=== PATIENT | male | born 1995 | race Caucasian/White ===

== ENCOUNTER 2021-02-24 16:58 | Inpatient (IN) | payer MEDICAID ==
[~2021-02-24] VITALS: Ht 175.3 cm; Wt 131.0 kg
[2021-02-24] MEDS ORDERED: ONDANSETRON ODT 4 MG TAB PO ONE (17:45)
[2021-02-24] MEDS ORDERED: PANTOPRAZOLE 40 MG TAB PO ONE (17:45)
[2021-02-24 18:02] LABS: Amphetamine Screen, Urine NEGATIVE (NEGATIVE); Barbiturate Scree,Urine NEGATIVE (NEGATIVE); Benzodiazephine Screen, Urine NEGATIVE (NEGATIVE); Cannabinoid Screen, Urine NEGATIVE (NEGATIVE); Cocaine Screen, Urine NEGATIVE (NEGATIVE); Opiate Scree,Urine NEGATIVE (NEGATIVE); Phencyclidine Screen, Urine NEGATIVE (NEGATIVE)
[2021-02-24 18:12] LABS: Urine Bacteria NONE SEEN /hpf (None Seen); Urine Blood Negative /uL (Negative); Urine Specific Gravity 1.036 (1.001-1.035); Urine WBC 1 /hpf (0 - 3)
[2021-02-24 19:14] LABS: Basophils # (auto) 0.1 10 ^3/uL (0-0.2); Eosinophils # (auto) 0.1 10 ^3/uL (0-0.8); Eosinophils % (auto) 0.7 % (0.0-7.0); Lymphocytes # (auto) 1.7 10 ^3/uL (0.4-5.4); Red Cell Distribution Width 13.8 % (11.8-14.3)
[2021-02-24 19:16] LABS: Basophils % (auto) 0.7 % (0.0-2.0); Hematocrit 52.9 % (41.0-53.0); Hemoglobin 17.6 g/dL (13.5-17.5); Lymphocytes % (auto) 11.5 % (10.0-50.0); Mean Corpuscular Hemoglobin 28.8 pg (28.0-32.0); Mean Corpuscular Hgb Conc. 33.3 g/dL (32.0-36.0); Mean Corpuscular Volume 86.6 fL (80.0-100.0); Monocytes % (auto) 6.7 % (0.0-12.0); Neutrophils % (auto) 80.4 % (37.0-80.0); Nucleated Red Blood Cells % 0.1 %; Red Blood Cells 6.11 10^6/uL (4.5-5.90)
[2021-02-24 19:34] LABS: Albumin 3.9 g/dL (3.4-5.0); Calcium 9.5 mg/dL (8.5-10.1); Potassium 4.4 mmol/L (3.5-5.1)
[2021-02-24 19:36] LABS: Bilirubin, Total 0.8 mg/dL (0.2-1.0); Total Protein 7.9 g/dL (6.4-8.2)
[2021-02-24 19:53] LABS: BUN/Creatinine Ratio 6.8
[2021-02-24] MEDS ORDERED: INSULIN LANTUS (GLARGINE) 1 /0.01ml (100units/ml) SC ONE (21:00)
[2021-02-24] MEDS ORDERED: InsuLIN R (HUMAN) 100 UNITS in SODIUM CHL 0.9% 99 ML IV SCH (21:00)
[2021-02-24] MEDS ORDERED: ACCU-CHEK COMFORT CURVE STRIP VI SCH (21:00)
[2021-02-24] MEDS ORDERED: SODIUM CHLORIDE 0.9% 1,000 ML IV ONE (21:00)
[2021-02-24] MEDS ORDERED: DEXTROSE (50%) 50ML SYRG IV PRN ×2 (21:00→21:30)
[2021-02-24] MEDS ORDERED: InsuLIN REG 1unit/0.01ml Soln (100units/ml) IV ONE (21:00)
[2021-02-24] MEDS ORDERED: ONDANSETRON HCL 4 MG/2 ML VIAL IV PRN (21:30)
[2021-02-24] MEDS ORDERED: NITROGLYCERIN 0.4 MG SL TAB SL PRN (21:30)
[2021-02-24] MEDS ORDERED: MORPHINE SULFATE INJECTION 2 MG/ML SYRG IV PRN (21:30)
[2021-02-24] MEDS ORDERED: InsuLIN REG 1unit/0.01ml Soln (100units/ml) ONE (23:01)
[2021-02-24] MEDS: SODIUM CHLORIDE 0.9% 1,000 ML IV SCH ×3 (23:19→23:42)
[2021-02-24] MEDS: ACCU-CHEK COMFORT CURVE STRIP VI SCH (23:19)
[2021-02-24 23:37] LABS: BUN/Creatinine Ratio 6.6; Calcium 8.4 mg/dL (8.5-10.1); Potassium 4.5 mmol/L (3.5-5.1)
[2021-02-25] MEDS: ACCU-CHEK COMFORT CURVE STRIP VI SCH ×14 (00:36→19:46)
[2021-02-25] MEDS: SODIUM CHLORIDE 0.9% 1,000 ML IV SCH ×4 (03:32→23:30)
[2021-02-25] MEDS: MORPHINE SULFATE INJECTION 2 MG/ML SYRG IV PRN (03:51)
[2021-02-25 04:19] LABS: BUN/Creatinine Ratio 6.5; Calcium 7.8 mg/dL (8.5-10.1); Potassium 3.4 mmol/L (3.5-5.1)
[2021-02-25 08:49] LABS: Basophils # (auto) 0.1 10 ^3/uL (0-0.2); Basophils % (auto) 0.6 % (0.0-2.0); Eosinophils # (auto) 0.2 10 ^3/uL (0-0.8); Eosinophils % (auto) 1.8 % (0.0-7.0); Hematocrit 47.8 % (41.0-53.0); Hemoglobin 16.4 g/dL (13.5-17.5); Lymphocytes # (auto) 1.8 10 ^3/uL (0.4-5.4); Lymphocytes % (auto) 13.7 % (10.0-50.0); Mean Corpuscular Hemoglobin 28.6 pg (28.0-32.0); Mean Corpuscular Hgb Conc. 34.3 g/dL (32.0-36.0); Mean Corpuscular Volume 83.5 fL (80.0-100.0); Monocytes % (auto) 7.7 % (0.0-12.0); Neutrophils # (auto) 10.2 10 ^3/uL (1.6-8.6); Neutrophils % (auto) 76.2 % (37.0-80.0); Nucleated Red Blood Cells % 0.1 %; Red Blood Cells 5.73 10^6/uL (4.5-5.90); Red Cell Distribution Width 13.6 % (11.8-14.3); White Blood Cell 13.4 10^3/uL (4.4-10.8)
[2021-02-25 09:01] LABS: Albumin 3.3 g/dL (3.4-5.0); Calcium 8.6 mg/dL (8.5-10.1); Potassium 3.5 mmol/L (3.5-5.1)
[2021-02-25 09:06] LABS: BUN/Creatinine Ratio 7.9; Bilirubin, Total 0.5 mg/dL (0.2-1.0)
[2021-02-25] MEDS ORDERED: INSULIN LANTUS (GLARGINE) 1 /0.01ml (100units/ml) SC SCH (10:00)
[2021-02-25] MEDS ORDERED: DEXTROSE (50%) 50ML SYRG IV PRN (16:00)
[2021-02-25] MEDS: InsuLIN REG 1unit/0.01ml Soln (100units/ml) SC SCH ×4 (16:19→19:48)
[2021-02-25 17:14] LABS: BUN/Creatinine Ratio 8.3; Calcium 8.3 mg/dL (8.5-10.1); Potassium 3.8 mmol/L (3.5-5.1)
[2021-02-25 17:29] LABS: Lipase 13207 U/L (73-393)
[2021-02-25 17:35] LABS: Amylase 664 U/L (25-115)
[2021-02-25] MEDS: INSULIN LANTUS (GLARGINE) 1 /0.01ml (100units/ml) SC SCH (22:00)
[2021-02-25 23:00] VITALS: BP 139/77
[2021-02-25 23:19] VITALS: BP 139/77
[2021-02-26] MEDS: InsuLIN REG 1unit/0.01ml Soln (100units/ml) SC SCH ×4 (00:16→12:00)
[2021-02-26] MEDS: ACCU-CHEK COMFORT CURVE STRIP VI SCH ×3 (00:21→12:00)
[2021-02-26 05:30] VITALS: BP 129/80
[2021-02-26] MEDS: SODIUM CHLORIDE 0.9% 1,000 ML IV SCH ×4 (06:06→22:45)
[2021-02-26 07:34] LABS: Basophils # (auto) 0.1 10 ^3/uL (0-0.2); Basophils % (auto) 0.4 % (0.0-2.0); Eosinophils # (auto) 0.8 10 ^3/uL (0-0.8); Eosinophils % (auto) 6.4 % (0.0-7.0); Hematocrit 43.2 % (41.0-53.0); Hemoglobin 14.2 g/dL (13.5-17.5); Lymphocytes # (auto) 2.2 10 ^3/uL (0.4-5.4); Lymphocytes % (auto) 18.5 % (10.0-50.0); Mean Corpuscular Hemoglobin 27.9 pg (28.0-32.0); Mean Corpuscular Hgb Conc. 32.9 g/dL (32.0-36.0); Mean Corpuscular Volume 84.9 fL (80.0-100.0); Monocytes # (auto) 0.9 10 ^3/uL (0-1.3); Monocytes % (auto) 7.3 % (0.0-12.0); Neutrophils # (auto) 7.9 10 ^3/uL (1.6-8.6); Neutrophils % (auto) 67.4 % (37.0-80.0); Nucleated Red Blood Cells % 0.1 %; Red Blood Cells 5.09 10^6/uL (4.5-5.90); Red Cell Distribution Width 13.7 % (11.8-14.3); White Blood Cell 11.8 10^3/uL (4.4-10.8)
[2021-02-26 08:00] LABS: Magnesium 1.8 mg/dL (1.6-2.6); Potassium 3.3 mmol/L (3.5-5.1)
[2021-02-26 08:10] LABS: Albumin 2.9 g/dL (3.4-5.0); BUN/Creatinine Ratio 8.5; Bilirubin, Total 0.6 mg/dL (0.2-1.0); Calcium 8.3 mg/dL (8.5-10.1); Total Protein 5.8 g/dL (6.4-8.2)
[2021-02-26] MEDS: INSULIN LANTUS (GLARGINE) 1 /0.01ml (100units/ml) SC SCH ×2 (10:00→21:48)
[2021-02-26] MEDS: MORPHINE SULFATE INJECTION 2 MG/ML SYRG IV PRN (13:20)
[2021-02-26] MEDS ORDERED: MAGNESIUM SULFATE 1GM/100ML 100 ML IV ONE (15:15)
[2021-02-26] MEDS ORDERED: POTASSIUM EFFERVESENT TAB 25 MEQ PO ONE (15:15)
[2021-02-26 17:00] VITALS: BP 119/67
[2021-02-26 22:00] VITALS: BP 123/68
[2021-02-27] MEDS: ACCU-CHEK COMFORT CURVE STRIP VI SCH ×4 (00:15→17:58)
[2021-02-27] MEDS: InsuLIN REG 1unit/0.01ml Soln (100units/ml) SC SCH ×5 (00:20→23:58)
[2021-02-27 05:00] VITALS: BP 125/57
[2021-02-27 06:03] LABS: Basophils # (auto) 0 10 ^3/uL (0-0.2); Basophils % (auto) 0.3 % (0.0-2.0); Eosinophils # (auto) 0.7 10 ^3/uL (0-0.8); Eosinophils % (auto) 9.6 % (0.0-7.0); Hematocrit 39.3 % (41.0-53.0); Hemoglobin 13.2 g/dL (13.5-17.5); Lymphocytes % (auto) 26.2 % (10.0-50.0); Mean Corpuscular Hemoglobin 28.3 pg (28.0-32.0); Mean Corpuscular Hgb Conc. 33.7 g/dL (32.0-36.0); Mean Corpuscular Volume 83.9 fL (80.0-100.0); Monocytes # (auto) 0.6 10 ^3/uL (0-1.3); Monocytes % (auto) 7.8 % (0.0-12.0); Neutrophils # (auto) 4.2 10 ^3/uL (1.6-8.6); Neutrophils % (auto) 56.1 % (37.0-80.0); Red Blood Cells 4.68 10^6/uL (4.5-5.90); Red Cell Distribution Width 13.5 % (11.8-14.3); White Blood Cell 7.6 10^3/uL (4.4-10.8)
[2021-02-27 06:16] LABS: Magnesium 1.8 mg/dL (1.6-2.6); Potassium 3.2 mmol/L (3.5-5.1)
[2021-02-27] MEDS: INSULIN LANTUS (GLARGINE) 1 /0.01ml (100units/ml) SC SCH ×2 (09:11→22:27)
[2021-02-27 09:19] VITALS: BP 160/82
[2021-02-27] MEDS: SODIUM CHLORIDE 0.9% 1,000 ML IV SCH ×2 (10:30→21:15)
[2021-02-27 12:30] VITALS: BP 128/73
[2021-02-27 17:30] VITALS: BP 128/74
[2021-02-27] MEDS ORDERED: MAGNESIUM SULFATE 1GM/100ML 100 ML IV ONE (17:45)
[2021-02-27] MEDS ORDERED: POTASSIUM EFFERVESENT TAB 25 MEQ PO ONE (17:45)
[2021-02-28 05:22] VITALS: BP 153/102
[2021-02-28] MEDS: InsuLIN REG 1unit/0.01ml Soln (100units/ml) SC SCH ×3 (06:01→18:36)
[2021-02-28] MEDS: ACCU-CHEK COMFORT CURVE STRIP VI SCH ×5 (06:01→23:29)
[2021-02-28] MEDS: SODIUM CHLORIDE 0.9% 1,000 ML IV SCH (06:13)
[2021-02-28 07:23] LABS: Magnesium 1.9 mg/dL (1.6-2.6); Potassium 3.5 mmol/L (3.5-5.1)
[2021-02-28 09:00] VITALS: BP 139/90
[2021-02-28] MEDS: LACTATED RINGER'S 1,000 ML IV SCH ×3 (10:17→20:12)
[2021-02-28] MEDS: INSULIN LANTUS (GLARGINE) 1 /0.01ml (100units/ml) SC SCH (10:18)
[2021-02-28 13:00] VITALS: BP 125/83
[2021-02-28] MEDS ORDERED: MAGNESIUM SULFATE 1GM/100ML 100 ML IV ONE (15:00)
[2021-02-28] MEDS ORDERED: POTASSIUM EFFERVESENT TAB 25 MEQ PO ONE (15:00)
[2021-02-28 17:00] VITALS: BP 136/54
[2021-02-28 22:37] VITALS: BP 138/84
[2021-03-01] MEDS: InsuLIN REG 1unit/0.01ml Soln (100units/ml) SC SCH ×4 (00:14→17:52)
[2021-03-01] MEDS: INSULIN LANTUS (GLARGINE) 1 /0.01ml (100units/ml) SC SCH ×3 (00:15→22:00)
[2021-03-01] MEDS: LACTATED RINGER'S 1,000 ML IV SCH ×3 (03:44→21:35)
[2021-03-01 05:58] VITALS: BP 133/90
[2021-03-01] MEDS: ACCU-CHEK COMFORT CURVE STRIP VI SCH ×3 (06:12→17:46)
[2021-03-01 09:00] VITALS: BP 135/83
[2021-03-01 10:54] LABS: Magnesium 1.7 mg/dL (1.6-2.6); Potassium 3.8 mmol/L (3.5-5.1)
[2021-03-01] MEDS ORDERED: POTASSIUM EFFERVESENT TAB 25 MEQ PO ONE (15:45)
[2021-03-01] MEDS ORDERED: MAGNESIUM SULFATE 1GM/100ML 100 ML IV ONE (15:45)
[2021-03-01 17:00] VITALS: BP 124/76
[2021-03-01 22:00] VITALS: BP 124/74
[2021-03-02] MEDS: ACCU-CHEK COMFORT CURVE STRIP VI SCH ×4 (00:56→18:04)
[2021-03-02] MEDS: InsuLIN REG 1unit/0.01ml Soln (100units/ml) SC SCH ×4 (01:03→18:04)
[2021-03-02 05:00] VITALS: BP 114/67
[2021-03-02] MEDS: LACTATED RINGER'S 1,000 ML IV SCH ×3 (06:49→17:15)
[2021-03-02 09:00] VITALS: BP_SYST 122; BP_SYST 135; BP_DIAS 83
[2021-03-02] MEDS: INSULIN LANTUS (GLARGINE) 1 /0.01ml (100units/ml) SC SCH ×2 (10:00→22:58)
[2021-03-02 11:33] LABS: Magnesium 1.6 mg/dL (1.6-2.6)
[2021-03-02 11:44] LABS: Potassium 3.4 mmol/L (3.5-5.1)
[2021-03-02] MEDS ORDERED: ASPirin 81 mg TAB PO ONE (12:00)
[2021-03-02] MEDS ORDERED: POTASSIUM EFFERVESENT TAB 25 MEQ PO ONE (12:15)
[2021-03-02 13:00] VITALS: BP 105/73
[2021-03-02 17:00] VITALS: BP 98/58
[2021-03-02 22:00] VITALS: BP 122/85
[2021-03-03] MEDS: ACCU-CHEK COMFORT CURVE STRIP VI SCH ×5 (00:29→23:53)
[2021-03-03] MEDS: InsuLIN REG 1unit/0.01ml Soln (100units/ml) SC SCH ×5 (00:36→23:53)
[2021-03-03] MEDS: LACTATED RINGER'S 1,000 ML IV SCH (00:37)
[2021-03-03 05:00] VITALS: BP 106/82
[2021-03-03 05:19] VITALS: BP 106/82
[2021-03-03 07:50] LABS: Potassium 3.4 mmol/L (3.5-5.1)
[2021-03-03 08:15] LABS: Albumin 2.7 g/dL (3.4-5.0); BUN/Creatinine Ratio 3.6; Bilirubin, Total 0.7 mg/dL (0.2-1.0); Calcium 8.3 mg/dL (8.5-10.1); Total Protein 5.5 g/dL (6.4-8.2)
[2021-03-03 09:00] VITALS: BP 125/79
[2021-03-03] MEDS: ASPirin 81 mg TAB PO SCH (10:09)
[2021-03-03] MEDS: INSULIN LANTUS (GLARGINE) 1 /0.01ml (100units/ml) SC SCH ×2 (10:10→22:20)
[2021-03-03 13:00] VITALS: BP 109/73
[2021-03-03] MEDS ORDERED: POTASSIUM EFFERVESENT TAB 25 MEQ PO ONE (13:00)
[2021-03-03 17:00] VITALS: BP 115/71
[2021-03-03 22:00] VITALS: BP 109/74
[2021-03-04 05:00] VITALS: BP 99/64
[2021-03-04] MEDS: ACCU-CHEK COMFORT CURVE STRIP VI SCH ×3 (05:47→16:55)
[2021-03-04] MEDS: InsuLIN REG 1unit/0.01ml Soln (100units/ml) SC SCH ×3 (05:48→17:10)
[2021-03-04 09:00] VITALS: BP 123/78
[2021-03-04] MEDS: ASPirin 81 mg TAB PO SCH (12:21)
[2021-03-04] MEDS: INSULIN LANTUS (GLARGINE) 1 /0.01ml (100units/ml) SC SCH ×2 (12:21→20:30)
[2021-03-04 13:00] VITALS: BP 133/72
[2021-03-04 17:00] VITALS: BP 119/77
[2021-03-04] MEDS ORDERED: INSLANTI SC (17:06)
[2021-03-04 19:29] VITALS: BP 119/77
== END 2021-03-04 20:25 | disposition home or self-care (01) | DRG 420 ==
LOC: ER 16:58 → TELE 21:30 → TELE-WESTW 02-25 22:50
PROVIDERS: ADMIT Nurse Practitioner; ATTEND Internal Medicine
DX: E11.10 Type 2 diabetes mellitus with ketoacidosis without coma (principal); N17.0 Acute kidney failure with tubular necrosis; K85.90 Acute pancreatitis without necrosis or infection, unspecified; R65.10 Systemic inflammatory response syndrome (SIRS) of non-infectious origin without acute organ dysfunction; K76.0 Fatty (change of) liver, not elsewhere classified; E86.0 Dehydration; K21.9 Gastro-esophageal reflux disease without esophagitis; E66.01 Morbid (severe) obesity due to excess calories; F17.200 Nicotine dependence, unspecified, uncomplicated; E87.6 Hypokalemia; R00.0 Tachycardia, unspecified; R79.89 Other specified abnormal findings of blood chemistry; Z68.41 Body mass index [BMI] 40.0-44.9, adult; Z71.3 Dietary counseling and surveillance; Z20.822 Contact with and (suspected) exposure to COVID-19
CPT/HCPCS: 36415; 36600; 70450; 74176; 76705; 80048; 80053; 80061; 80307; 81001; 82010; 82150; 82805; 82962; 83036; 83690; 83735; 83930; 84132; 84443; 85025; 87426; G0378; J1815; J2405; Q0162